=== PATIENT | female | born 1990 ===

== ENCOUNTER 2018-05-28 02:20 | Inpatient (IN) | payer MEDICAID ==
[2018-05-28] MEDS ORDERED: Sodium Chloride 0.9% 1,000 ML IV STA ×2 (02:43→04:09)
[2018-05-28] MEDS ORDERED: Iohexol 240 (50 ml) PO ONE (02:43)
[2018-05-28] MEDS ORDERED: Morphine 4 MG/ML VIAL IV ONE (02:52)
[2018-05-28] MEDS ORDERED: Iohexol 240 (50 ml) ONE ×2 (02:57→04:12)
[2018-05-28] MEDS ORDERED: Morphine 4 MG/ML VIAL ONE (02:58)
--- NOTE | 2018-05-28 03:09 | ED PDOC ---
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 Patient reports developing fever and chills, and also vomited upon arrival to ER. Last bowel movement was yesterday. Patient denies any diarrhea, constipation or other medical complaints. PMD: Ze Davis Past Medical History Reviewed: Historical Data, Nursing Documentation, Vital Signs Vital Signs: Last Vital Signs Temp 100.3 F H 05/28/18 02:37 Pulse 123 H 05/28/18 02:37 Resp 16 05/28/18 02:37 BP 135/64 05/28/18 02:37 Pulse Ox 100 05/28/18 05:26 - Medical History PMH: No Chronic Diseases - Surgical History Surgical History: No Surg Hx - Family History Family History: States: Unknown Family Hx - Home Medications Home Medications: Ambulatory Orders Medication Instructions Recorded Ibuprofen [Motrin Tab] 800 mg PO Q6H PRN #20 tab 08/25/15 Oxycodone HCl/Acetaminophen 1 tab PO Q6H PRN #15 tab 08/25/15 [Percocet 325 mg-5 mg] - Allergies Allergies/Adverse Reactions: Allergies Allergy/AdvReac Type Severity Reaction Status Date / Time No Known Allergies Allergy Verified 08/25/15 19:52 Review of Systems ROS Statement: Except As Marked, All Systems Reviewed And Found Negative Constitutional: Positive for: Fever, Chills Gastrointestinal: Positive for: Vomiting, Abdominal Pain. Negative for: Diarrhea, Constipation Physical Exam - Reviewed Nursing Documentation Reviewed: Yes Vital Signs Reviewed: Yes - Physical Exam Appears: Positive for: Non-toxic Head Exam: Positive for: ATRAUMATIC, NORMAL INSPECTION, NORMOCEPHALIC Skin: Positive for: Normal Color, Warm, Dry Eye Exam: Positive for: Normal appearance, EOMI, PERRL Neck: Positive for: Painless ROM, Supple Cardiovascular/Chest: Positive for: Regular Rate, Rhythm. Negative for: Murmur Respiratory: Positive for: Normal Breath Sounds. Negative for: Respiratory Distress Gastrointestinal/Abdominal: Positive for: Tenderness (RLQ), Guarding. Negative for: Rebound Back: Positive for: Normal Inspection. Negative for: L CVA Tenderness, R CVA Tenderness, Vertebral Tenderness Extremity: Positive for: Normal ROM (upper and lower extremities). Negative for : Deformity, Swelling Neurologic/Psych: Positive for: Alert, Oriented. Negative for: Motor/Sensory Deficits - Laboratory Results Result Diagrams: 05/28/18 03:10 05/28/18 03:10 - ECG O2 Sat by Pulse Oximetry: 100 (RA) Pulse Ox Interpretation: Normal Medical Decision Making Medical Decision Making: Time: 02:42 Initial impression: abdominal pain, appendicitis Initial Plan --Abd Pelvis PO & IV Contrast [CT] --Beta-HCG, Quantitative --CMP --CBC w/ differential --Omnipaque 240 50 ml PO --Morphine 4 mg IV --Sodium Chloride 1,000 ml IV 999 mls/hr --Zofran Inj 4 mg IV --Blood culture --Urine C&S --Urinalysis --Reevaluation 05:00 -Patient vomited contrast, will try giving contrast again. 05:20 -Patient has glucocytosis, elevated wbc. Hgb stable. No electrolyte abnormality. 06:20 -Patient will be admitted. ----- Scribe Attestation: Documented by Heath Sparks, acting as a scribe for Jose Francois MD. Provider Scribe Attestation: All medical record entries made by the Scribe were at my direction and personally dictated by me. I have reviewed the chart and agree that the record accurately reflects my personal performance of the history, physical exam, medical decision making, and the department course for this patient. I have also personally directed, reviewed, and agree with the discharge instructions and disposition. Disposition - Disposition Forms: [employer] (Uzbek)
[2018-05-28 03:22] LABS: BASO # 0.1 K/uL (0.0-0.2); BASO % 0.3 % (0.0-2.0); EOS # 0.2 K/uL (0.0-0.7); EOS % 0.9 % (0.0-4.0); HEMOGLOBIN 12.4 g/dL (12.0-16.0); LYMPH % 9.8 % (20.0-40.0); MEAN CELL VOLUME 89.6 fl (81.0-99.0); MEAN CORPUSCULAR HEMOGLOBIN 30.4 pg (27.0-31.0); MEAN PLATELET VOLUME 9.2 fl (7.2-11.7); MONO # 1.3 K/uL (0.0-0.8); MONO % 6.3 % (0.0-10.0); NEUT # 16.6 K/uL (1.8-7.0); NEUT % 82.7 % (50.0-75.0); PLATELET COUNT 260 K/uL (130-400); RBC 4.08 Mil/uL (3.80-5.20); RED CELL DISTRIBUTION WIDTH 13.7 % (11.5-14.5); WHITE BLOOD COUNT 20.1 K/uL (4.8-10.8)
[2018-05-28 03:32] LABS: ALB/GLOB RATIO 1.3 (1.0-2.1); ALBUMIN 4.5 g/dL (3.5-5.0); ALT/SGPT 20 U/L (9-52); AST/SGOT 22 U/L (14-36); BLOOD UREA NITROGEN 11 mg/dl (7-17); CALCIUM 9.4 mg/dL (8.4-10.2); GFR AFRICAN-AMERICAN > 60; GFR NON-AFRICAN AMERICAN > 60
[2018-05-28 04:04] LABS: BANDS 2 % (0-2); LYMPHOCYTE 6 % (20-50); MONOCYTE 7 % (0-10); NEUTROPHIL 81 % (42-75); PLATELET ESTIMATE NORMAL (NORMAL); REACTIVE LYMPHOCYTES 4 % (0-0); TOTAL CELLS COUNTED 100
[2018-05-28] MEDS ORDERED: Sodium Chloride 0.9% 100 ML ONE (05:03)
[2018-05-28] MEDS ORDERED: Iohexol 300 100 ML IJ ONE (05:03)
[2018-05-28 05:35] LABS: SQUAMOUS EPITHIAL 4 /hpf (0-5); URINE BACTERIA RARE (<OCC); URINE BILIRUBIN NEGATIVE (NEGATIVE); URINE BLOOD NEGATIVE (NEGATIVE); URINE CLARITY SLIGHTY-CLOUDY (Clear); URINE COLOR YELLOW (YELLOW); URINE GLUCOSE (UA) NEG (Normal); URINE LEUKOCYTE ESTERASE SMALL Leu/uL (Negative); URINE PROTEIN 30 mg/dL (NEGATIVE)
[2018-05-28] MEDS ORDERED: Sodium Chloride 0.9% 1,000 ML IV SCH (06:00)
[2018-05-28 06:22] LABS: INR 1.1 (0.9-1.2); PARTIAL THROMBOPLASTIN TIME 30.3 Seconds (25.6-37.1); PROTHROMBIN TIME 12.1 Seconds (9.8-13.1)
[2018-05-28] MEDS: Sodium Chloride 0.9% 1,000 ML IV SCH ×2 (06:27→13:46)
[2018-05-28] MEDS ORDERED: Piperacillin/Tazobact 3.375 gm Inj IVPB ONE (06:29)
[2018-05-28] MEDS: Piperacillin/Tazobact 3.375 GM in Sodium Chloride 0.9% 100 ML IVPB SCH ×6 (06:30→19:48)
--- NOTE | 2018-05-28 07:21 | CP.PCM.HP ---
History of Present Illness - History of Present Illness History of Present Illness: H &P. Obese 27 F w no sig PMH came to ED with RLQ pain started earlier today. Pain is sudden. Pain is localized. Pt had an episode of vomiting in ED. Non bilious, non bloody vomitus. Last time she ate was last night around 8PM. Pt also has fever of 100.3 in ED. Denies sick contact, recent travels, trauma, diarrhea, dysuria, hematuria,hematemesis, hematochezia, melena. Having regular BM. No PMH no PSH. Pain is worsen overtime. CT shows acute appnedicitis . Pt consented for OR, all questions answered. PMH none PSH none SS non smoker, non drinker, no drug abuse Present on Admission - Present on Admission Any Indicators Present on Admission: No Review of Systems - Review of Systems Review of Systems: See HPI - Constitutional Constitutional: Anorexia, Fever. absent: Chills, Weight Loss, Weakness Past Patient History - Infectious Disease Hx of Infectious Diseases: None - Past Social History Smoking Status: Never Smoked - CARDIAC Hx Cardiac Disorders: No - PULMONARY Hx Respiratory Disorders: No - NEUROLOGICAL Hx Neurological Disorder: No - HEENT Hx HEENT Problems: No - RENAL Hx Chronic Kidney Disease: No - ENDOCRINE/METABOLIC Hx Endocrine Disorders: No - HEMATOLOGICAL/ONCOLOGICAL Hx Blood Disorders: No - INTEGUMENTARY Hx Dermatological Problems: No - MUSCULOSKELETAL/RHEUMATOLOGICAL Hx Musculoskeletal Disorders: No - GENITOURINARY/GYNECOLOGICAL Hx Genitourinary Disorders: No - PSYCHIATRIC Hx Psychophysiologic Disorder: No - SURGICAL HISTORY Hx Surgeries: No - ANESTHESIA Hx Anesthesia: No Meds Allergies/Adverse Reactions: Allergies Allergy/AdvReac Type Severity Reaction Status Date / Time No Known Allergies Allergy Verified 08/25/15 19:52 Physical Exam - Constitutional Appears: Non-toxic, In Acute Distress - Head Exam Head Exam: ATRAUMATIC, NORMAL INSPECTION, NORMOCEPHALIC - Eye Exam Eye Exam: EOMI, Normal appearance, PERRL Pupil Exam: NORMAL ACCOMODATION, PERRL - ENT Exam ENT Exam: Mucous Membranes Moist, Normal Exam - Neck Exam Neck exam: Positive for: Normal Inspection - Respiratory Exam Respiratory Exam: NORMAL BREATHING PATTERN - Cardiovascular Exam Cardiovascular Exam: REGULAR RHYTHM - GI/Abdominal Exam GI & Abdominal Exam: Soft, Tenderness. absent: Distended, Firm, Guarding, Hernia, Rigid Additional comments: RLQ TTP. - Exam Exam: NORMAL INSPECTION - Extremities Exam Extremities exam: Positive for: normal inspection - Back Exam Back exam: NORMAL INSPECTION - Neurological Exam Neurological exam: Alert, CN II-XII Intact, Normal Gait, Oriented x3, Reflexes Normal - Psychiatric Exam Psychiatric exam: Normal Affect, Normal Mood - Skin Skin Exam: Dry, Intact, Normal Color, Warm Results - Vital Signs Recent Vital Signs: Last Vital Signs Temp 98.1 F 05/28/18 06:57 Pulse 88 05/28/18 06:57 Resp 18 05/28/18 06:57 BP 108/70 05/28/18 06:57 Pulse Ox 100 05/28/18 06:57 - Labs Result Diagrams: 05/28/18 03:10 05/28/18 03:10 Labs: Laboratory Results - last 24 hr 05/28/18 05/28/18 05/28/18 03:10 03:10 05:12 WBC 20.1 H D RBC 4.08 Hgb 12.4 Hct 36.5 MCV 89.6 MCH 30.4 MCHC 34.0 RDW 13.7 Plt Count 260 MPV 9.2 Neut % (Auto) 82.7 H Lymph % (Auto) 9.8 L [place] % (Auto) 6.3 Eos % (Auto) 0.9 Baso % (Auto) 0.3 Neut # (Auto) 16.6 H Lymph # (Auto) 2.0 [place] # (Auto) 1.3 H Eos # (Auto) 0.2 Baso # (Auto) 0.1 Neutrophils % (Manual) 81 H Band Neutrophils % 2 Lymphocytes % (Manual) 6 L Reactive Lymphs % 4 H Monocytes % (Manual) 7 Platelet Estimate Normal Macrocytosis (manual) Slight PT INR APTT Sodium 139 Potassium 3.8 Chloride 100 Carbon Dioxide 26 Anion Gap 17 BUN 11 Creatinine 0.6 L Est GFR ( Amer) > 60 Est GFR (Non-Af Amer) > 60 Random Glucose 97 Calcium 9.4 Total Bilirubin 1.1 AST 22 ALT 20 Alkaline Phosphatase 70 Total Protein 7.9 Albumin 4.5 Globulin 3.4 Albumin/Globulin Ratio 1.3 Beta HCG, Quant < 2.39 Urine Color Yellow Urine Clarity Slighty-cloudy Urine pH 6.0 Ur Specific [place] 1.028 Urine Protein 30 Urine Glucose (UA) Neg Urine Ketones 80 Urine Blood Negative Urine Nitrate Negative Urine Bilirubin Negative Urine Urobilinogen 2.0 H Ur Leukocyte Esterase Small Urine RBC (Auto) 4 H Urine Microscopic WBC 4 Ur Squamous Epith Cells 4 Urine Bacteria Rare 05/28/18 06:00 WBC RBC Hgb Hct MCV MCH MCHC RDW Plt Count MPV Neut % (Auto) Lymph % (Auto) [place] % (Auto) Eos % (Auto) Baso % (Auto) Neut # (Auto) Lymph # (Auto) [place] # (Auto) Eos # (Auto) Baso # (Auto) Neutrophils % (Manual) Band Neutrophils % Lymphocytes % (Manual) Reactive Lymphs % Monocytes % (Manual) Platelet Estimate Macrocytosis (manual) PT 12.1 INR 1.1 APTT 30.3 Sodium Potassium Chloride Carbon Dioxide Anion Gap BUN Creatinine Est GFR ( Amer) Est GFR (Non-Af Amer) Random Glucose Calcium Total Bilirubin AST ALT Alkaline Phosphatase Total Protein Albumin Globulin Albumin/Globulin Ratio Beta HCG, Quant Urine Color Urine Clarity Urine pH Ur Specific [place] Urine Protein Urine Glucose (UA) Urine Ketones Urine Blood Urine Nitrate Urine Bilirubin Urine Urobilinogen Ur Leukocyte Esterase Urine RBC (Auto) Urine Microscopic WBC Ur Squamous Epith Cells Urine Bacteria Assessment & Plan - Assessment and Plan (Free Text) Assessment: Acute appendicitis -OR today -NPO -IVF -ABX -DVT/GI ppx -pain/nausea control VANESSA glass
[2018-05-28] MEDS ORDERED: HYDROmorphone 0.5 mg/0.5 ml ISec IVP PRN ×2 (08:15→12:18)
[2018-05-28] MEDS ORDERED: Piperacillin/Tazobact 3.375 GM in Sodium Chloride 0.9% 100 ML IVPB SCH (10:00)
--- NOTE | 2018-05-28 10:10 | CT ---
PROCEDURE: CT Abdomen and Pelvis with contrast HISTORY: abd pain r sided COMPARISON: None. TECHNIQUE: Contrast dose: 98 mL Omnipaque 300 Radiation dose: Total exam DLP = 1030.18 mGy-cm. This CT exam was performed using one or more of the following dose reduction techniques: Automated exposure control, adjustment of the mA and/or kV according to patient size, and/or use of iterative reconstruction technique. FINDINGS: LOWER THORAX: Unremarkable. LIVER: Unremarkable. No gross lesion or ductal dilatation. GALLBLADDER AND BILE DUCTS: Unremarkable. PANCREAS: Unremarkable. No gross lesion or ductal dilatation. SPLEEN: Unremarkable. ADRENALS: Unremarkable. No mass. KIDNEYS AND URETERS: Unremarkable. No hydronephrosis. No solid mass. VASCULATURE: Unremarkable. No aortic aneurysm. BOWEL: Unremarkable. No obstruction. No gross mural thickening. APPENDIX: Dilated appendix measuring up to 1.3 centimeters. Mild periappendiceal stranding. No right lower quadrant fluid collection. PERITONEUM: Unremarkable. No free fluid. No free air. LYMPH NODES: Unremarkable. No enlarged lymph nodes. BLADDER: Limited evaluation due to underdistention. REPRODUCTIVE: Please note that evaluation of gynecologic organs is not optimal on CT imaging. BONES: No acute fracture. OTHER FINDINGS: None. IMPRESSION: Findings consistent with acute appendicitis. Please note that this report is in general agreement with the preliminary report provided by [facility].
[2018-05-28] MEDS ORDERED: Propofol 10 mg/ml Inj (20 ML) ONE (10:45)
[2018-05-28] MEDS ORDERED: Midazolam 2 MG/2 ML VIAL ONE (10:45)
[2018-05-28] MEDS ORDERED: Rocuronium 10 mg/ml (5 ml) ONE (10:45)
[2018-05-28] MEDS ORDERED: Lidocaine 4% (Laryng-O-Jet) Kit MM ONE (10:45)
[2018-05-28] MEDS ORDERED: Lactated Ringer's 1,000 ML IV ONE (10:55)
[2018-05-28] MEDS ORDERED: Bupivacaine HCl 0.25% PF (30 ml) Inj ONE (11:03)
--- NOTE | 2018-05-28 12:17 | PCM.SURG1 ---
Surgeon's Initial Post Op Note - Surgeon's Notes Surgeon: Dr. Dev Reyes Chief Orthoptist: Nurys Young, PGY-2 Type of Anesthesia: General Endo Anesthesia Administered By: Dr Rodriguez Pre-Operative Diagnosis: Acute appendicitis Operative Findings: See op report Post-Operative Diagnosis: Acute appendicitis Operation Performed: Laparoscopic appendectomy Specimen/Specimens Removed: Appendix Estimated Blood Loss: EBL {In ML}: 5 Blood Products Given: N/A Drains Used: No Drains Post-Op Condition: Good Date of Surgery/Procedure: 05/28/18 Time of Surgery/Procedure: 12:17
[2018-05-28] MEDS ORDERED: Dexamethasone 4 mg/1 ml IVP PRN (12:18)
[2018-05-28] MEDS: Lactated Ringer's 1,000 ML IV SCH ×2 (13:07→22:00)
[2018-05-28] MEDS ORDERED: Benzocaine/Menthol (Cepacol) Lozenge PO PRN (18:16)
[2018-05-28] MEDS: Oxycodone/Acetaminophen 5/325 mg Tab PO PRN (19:48)
[2018-05-29] MEDS: Piperacillin/Tazobact 3.375 GM in Sodium Chloride 0.9% 100 ML IVPB SCH ×2 (01:06→08:19)
--- NOTE | 2018-05-29 03:16 | OP ---
PROCEDURE DATE: 05/28/2018 SURGEON: Dev Reyes MD TRADING ANALYST: Nurys Young, PGY-2 ANESTHESIOLOGIST: Dr. Rodriguez. ANESTHESIA: General endotracheal. PREOPERATIVE DIAGNOSIS: Acute appendicitis. POSTOPERATIVE DIAGNOSIS: Acute appendicitis. OPERATION PERFORMED: Laparoscopic appendectomy. FINDINGS: Acute appendicitis. SPECIMEN: Appendix. BLOOD LOSS: 5 mL. DRAINS: None. COMPLICATIONS: None. DESCRIPTION OF PROCEDURE: Preoperatively, the patient was evaluated with CT scan, with findings of acute appendicitis, additionally pt had a leukocytosis of 20.1 with a temperature of 100.3. The patient states that the pain started on day of evaluation. A time-out was achieved. The patient was identified by name, name of the procedure, laterality, my vu, the consent form, and her wrist band. The abdomen was prepped with chlorhexidine. After waiting for 3 minutes, the abdomen was draped. A suprumbilical incision was made after injection with Marcaine. The abdomen was then entered with a Veress needle in the umbilicus inferior to the supraumbilical incision. The abdomen was the insufflated with carbon dioxide to a pressure of approximately 15mmHg. A Visiport was then placed right into the supraumbilical incision without issue. Circumferential observation was performed while inserting the Visiport, which was unremarkable. After insertion of the Visiport, the camera was used to identify the tip of the appendix in the right lower quadrant. Subsequently, a suprapubic 5 mm port and a left lower quadrant 5 mm port were placed. Using a 10 mm scope, the tip of the appendix was identified and brought up. It was very inflamed, but it was not perforated. There was a small amount of non-feculent, nonpurulent fluid in the pelvis. The appendix was identified with mesentery eventually seen. The mesentery was serially taken down until the base of the appendix was identified at the junction of the cecum, using a [place] and Harmonic to dissect. Under direct visualization, a Harmonic scalpel was used to ligate the appendiceal artery. After ligation of the appendiceal artery, the appendix was pulled up, a 5 mm scope was inserted into the left lower quadrant port and an Endo JAVIER was placed at the base of the appendix , right above the cecum. After making sure the stapler was beyond the tissue and no other structures were caught in the stapler, the stapler was fired. The entire appendix was removed and placed in the Endo catch bag. After dilation of the umbilical incision and the incision was extended with scissors, the appendix was removed. The abdominal cavity was inspected. A small amount of fluid in the pelvis was aspirated and then irrigated and removed. There was very minimal bleeding identified. No appendiceal stump was identified. The CO2 was removed after evaluating the abdomen, which was benign. The umbilicus was closed with a UR6 suture. The wound was injected with Marcaine,and subcuticular sutures were placed in all 3 incisions. Dermabond was applied to all incisions At the end of the procedure, the sponge, instrument, and needle counts were declared to be correct. The patient was then taken to recovery room in good condition. Nurys Young DO Dev Reyes MD MTDHuma
[2018-05-29] MEDS: Oxycodone/Acetaminophen 5/325 mg Tab PO PRN (07:01)
[2018-05-29] MEDS ORDERED: Oxycodone/Acetaminophen 5/325 mg Tab PO PRN (07:27)
--- NOTE | 2018-05-29 07:31 | CP.PCM.DIS ---
Provider - Provider Date of Admission: 05/28/18 06:21 Attending physician: Dev Reyes MD Time Spent in preparation of Discharge (in minutes): 45 Hospital Course - Lab Results Lab Results: Micro Results 05/28/18 03:40 Blood-Venous Blood Culture - Preliminary NO GROWTH AFTER 24 HOURS 05/28/18 03:10 Blood-Venous Blood Culture - Preliminary NO GROWTH AFTER 24 HOURS Most Recent Lab Values WBC 20.1 K/uL (4.8-10.8) H D 05/28/18 03:10 RBC 4.08 Mil/uL (3.80-5.20) 05/28/18 03:10 Hgb 12.4 g/dL (12.0-16.0) 05/28/18 03:10 Hct 36.5 % (34.0-47.0) 05/28/18 03:10 MCV 89.6 fl (81.0-99.0) 05/28/18 03:10 MCH 30.4 pg (27.0-31.0) 05/28/18 03:10 MCHC 34.0 g/dL (33.0-37.0) 05/28/18 03:10 RDW 13.7 % (11.5-14.5) 05/28/18 03:10 Plt Count 260 K/uL (130-400) 05/28/18 03:10 MPV 9.2 fl (7.2-11.7) 05/28/18 03:10 Neut % (Auto) 82.7 % (50.0-75.0) H 05/28/18 03:10 Lymph % (Auto) 9.8 % (20.0-40.0) L 05/28/18 03:10 [place] % (Auto) 6.3 % (0.0-10.0) 05/28/18 03:10 Eos % (Auto) 0.9 % (0.0-4.0) 05/28/18 03:10 Baso % (Auto) 0.3 % (0.0-2.0) 05/28/18 03:10 Neut # (Auto) 16.6 K/uL (1.8-7.0) H 05/28/18 03:10 Lymph # (Auto) 2.0 K/uL (1.0-4.3) 05/28/18 03:10 [place] # (Auto) 1.3 K/uL (0.0-0.8) H 05/28/18 03:10 Eos # (Auto) 0.2 K/uL (0.0-0.7) 05/28/18 03:10 Baso # (Auto) 0.1 K/uL (0.0-0.2) 05/28/18 03:10 Neutrophils % (Manual) 81 % (42-75) H 05/28/18 03:10 Band Neutrophils % 2 % (0-2) 05/28/18 03:10 Lymphocytes % (Manual) 6 % (20-50) L 05/28/18 03:10 Reactive Lymphs % 4 % (0-0) H 05/28/18 03:10 Monocytes % (Manual) 7 % (0-10) 05/28/18 03:10 Platelet Estimate Normal (NORMAL) 05/28/18 03:10 Macrocytosis (manual) Slight 05/28/18 03:10 PT 12.1 Seconds (9.8-13.1) 05/28/18 06:00 INR 1.1 (0.9-1.2) 05/28/18 06:00 APTT 30.3 Seconds (25.6-37.1) 05/28/18 06:00 Sodium 139 mmol/l (132-148) 05/28/18 03:10 Potassium 3.8 MMOL/L (3.6-5.0) 05/28/18 03:10 Chloride 100 mmol/L (98-107) 05/28/18 03:10 Carbon Dioxide 26 mmol/L (22-30) 05/28/18 03:10 Anion Gap 17 (10-20) 05/28/18 03:10 BUN 11 mg/dl (7-17) 05/28/18 03:10 Creatinine 0.6 mg/dl (0.7-1.2) L 05/28/18 03:10 Est GFR ( Amer) > 60 05/28/18 03:10 Est GFR (Non-Af Amer) > 60 05/28/18 03:10 Random Glucose 97 mg/dL (65-105) 05/28/18 03:10 Calcium 9.4 mg/dL (8.4-10.2) 05/28/18 03:10 Total Bilirubin 1.1 mg/dl (0.2-1.3) 05/28/18 03:10 AST 22 U/L (14-36) 05/28/18 03:10 ALT 20 U/L (9-52) 05/28/18 03:10 Alkaline Phosphatase 70 U/L (38-126) 05/28/18 03:10 Total Protein 7.9 G/DL (6.3-8.2) 05/28/18 03:10 Albumin 4.5 g/dL (3.5-5.0) 05/28/18 03:10 Globulin 3.4 gm/dL (2.2-3.9) 05/28/18 03:10 Albumin/Globulin Ratio 1.3 (1.0-2.1) 05/28/18 03:10 Beta HCG, Quant < 2.39 mIU/mL 05/28/18 03:10 Urine Color Yellow (YELLOW) 05/28/18 05:12 Urine Clarity Slighty-cloudy (Clear) 05/28/18 05:12 Urine pH 6.0 (5.0-8.0) 05/28/18 05:12 Ur Specific [place] 1.028 (1.003-1.030) 05/28/18 05:12 Urine Protein 30 mg/dL (NEGATIVE) 05/28/18 05:12 Urine Glucose (UA) Neg mg/dL (Normal) 05/28/18 05:12 Urine Ketones 80 mg/dL (NEGATIVE) 05/28/18 05:12 Urine Blood Negative (NEGATIVE) 05/28/18 05:12 Urine Nitrate Negative (NEGATIVE) 05/28/18 05:12 Urine Bilirubin Negative (NEGATIVE) 05/28/18 05:12 Urine Urobilinogen 2.0 mg/dL (0.2-1.0) H 05/28/18 05:12 Ur Leukocyte Esterase Small [place]/uL (Negative) 05/28/18 05:12 Urine RBC (Auto) 4 /hpf (0-3) H 05/28/18 05:12 Urine Microscopic WBC 4 /hpf (0-5) 05/28/18 05:12 Ur Squamous Epith Cells 4 /hpf (0-5) 05/28/18 05:12 Urine Bacteria Rare (<OCC) 05/28/18 05:12 - Hospital Course Hospital Course: obese 27 F w no sig PMH came with RLQ abd pain for 1 day. Pt was found to have appendicitis and taken to OR the next day. Tolerated it well. Pain controlled. Tolerated diet. Denies nausea, CP, SOB. Ambuated and voided. PT was instructed to f/u at Dr. Reyes's office in 1 week. Discharge Exam - Head Exam Head Exam: ATRAUMATIC, NORMAL INSPECTION, NORMOCEPHALIC - Eye Exam Eye Exam: EOMI, Normal appearance, PERRL Pupil Exam: NORMAL ACCOMODATION, PERRL - ENT Exam ENT Exam: Normal Exam - Neck Exam Neck exam: Full Rom - Respiratory Exam Respiratory Exam: NORMAL BREATHING PATTERN, UNREMARKABLE - Cardiovascular Exam Cardiovascular Exam: REGULAR RHYTHM, +S1, +S2 - GI/Abdominal Exam GI & Abdominal Exam: Soft, Tenderness. absent: Distended, Firm, Guarding, Hernia, Rigid Additional comments: Incision C/D/I . TTP - Exam Exam: NORMAL INSPECTION - Extremities Exam Extremities exam: full ROM - Back Exam Back exam: FULL ROM - Neurological Exam Neurological exam: Alert, CN II-XII Intact, Normal Gait, Oriented x3, Reflexes Normal - Psychiatric Exam Psychiatric exam: Normal Affect, Normal Mood - Skin Skin Exam: Dry, Intact, Normal Color, Warm Discharge Plan - Follow Up Plan Condition: STABLE Disposition: HOME/ ROUTINE Instructions: Appendicitis in Adults, Appendectomy, Laparoscopic Surgery (DC) Additional Instructions: f/u at Dr. Reyes's office in 1 week. Ok to take shower. Leave glues on. Ok to return to work next week. NO heavy lifting for 1 month Take pain med as needed. Referrals: Dev Reyes MD [Staff Provider] -
[2018-05-29 08:05] VITALS: BP 111/75; PULSE 82; RESP 18; TEMP 98.4; O2SAT 99
[2018-05-29 08:38] LABS: BASO # 0.1 K/uL (0.0-0.2); BASO % 0.5 % (0.0-2.0); EOS # 0.1 K/uL (0.0-0.7); EOS % 1.5 % (0.0-4.0); LYMPH # 1.6 K/uL (1.0-4.3); LYMPH % 15.8 % (20.0-40.0); MEAN CELL VOLUME 91.8 fl (81.0-99.0); MEAN CORPUSCULAR HEMOGLOBIN 30.4 pg (27.0-31.0); MEAN CORPUSCULAR HGB CONC 33.2 g/dL (33.0-37.0); MONO # 0.9 K/uL (0.0-0.8); MONO % 8.6 % (0.0-10.0); NEUT # 7.5 K/uL (1.8-7.0); NEUT % 73.6 % (50.0-75.0); RBC 3.29 Mil/uL (3.80-5.20); RED CELL DISTRIBUTION WIDTH 13.7 % (11.5-14.5); WHITE BLOOD COUNT 10.2 K/uL (4.8-10.8)
== END 2018-05-29 10:26 | disposition home or self-care (01) | DRG 883 ==
LOC: H.ER 02:20 → H.ERHOLD 06:21 → H.MEDSURG1 07:03
PROVIDERS: ADMIT Surgery; ATTEND Surgery
PROC: 0DTJ4ZZ Resection of Appendix, Percutaneous Endoscopic Approach (ICD-10-PCS; principal; 2018-05-28 12:30)
DX: K35.80 Unspecified acute appendicitis (principal); D72.828 Other elevated white blood cell count

== ENCOUNTER 2018-05-31 18:28 | Emergency (ER) | payer MEDICAID ==
[2018-05-31 19:15] VITALS: BP 117/70; PULSE 82; RESP 18; TEMP 98.8; O2SAT 97
--- NOTE | 2018-05-31 19:43 | ED PDOC ---
HPI: Abdomen Time Seen by Provider: 05/31/18 19:42 Chief Complaint (Nursing): GI Problem Chief Complaint (Provider): CONSTIPATION History Per: Patient (27 Y/O FEMALE HERE WITH CONSTIPATION/RECTAL PAIN NOTED TODAY S/P APPENDECTOMY 05/28/2018. TOOK ONE DOSE TRAMADOL YESTERDAY. TOOK ONE DOSE COLACE TODAY WITHOUT RELIEF. DENIES ANY FEVERS/CHILLS.) Past Medical History Reviewed: Historical Data, Nursing Documentation, Vital Signs Vital Signs: Last Vital Signs Temp 98.8 F 05/31/18 19:12 Pulse 82 05/31/18 19:12 Resp 18 05/31/18 19:12 BP 117/70 05/31/18 19:12 Pulse Ox 97 05/31/18 19:43 - Medical History PMH: Denies: Chronic Kidney Disease - Family History Family History: States: Unknown Family Hx - Home Medications Home Medications: Ambulatory Orders Medication Instructions Recorded Ibuprofen [Motrin Tab] 600 mg PO Q6 5 Days tab 05/29/18 Ibuprofen [Motrin] 600 mg PO Q8 PRN #21 tab 05/31/18 Polyethylene Glycol 3350 [Miralax] 17 gm PO DAILY #68 ml 05/31/18 - Allergies Allergies/Adverse Reactions: Allergies Allergy/AdvReac Type Severity Reaction Status Date / Time No Known Allergies Allergy Verified 08/25/15 19:52 Review of Systems ROS Statement: Except As Marked, All Systems Reviewed And Found Negative Physical Exam - Reviewed Nursing Documentation Reviewed: Yes Vital Signs Reviewed: Yes - Physical Exam Appears: Positive for: Well, Non-toxic, No Acute Distress Head Exam: Positive for: ATRAUMATIC, NORMAL INSPECTION, NORMOCEPHALIC Skin: Positive for: Normal Color, Warm, DRY Eye Exam: Positive for: EOMI, Normal appearance, PERRL ENT: Positive for: Normal ENT Inspection Neck: Positive for: Normal, Painless ROM Cardiovascular/Chest: Positive for: Regular Rate, Rhythm Respiratory: Positive for: CNT, Normal Breath Sounds Gastrointestinal/Abdominal: Positive for: Normal Exam, Soft Back: Positive for: Normal Inspection Rectal: Positive for: Other (no stool in rectum) Extremity: Positive for: Normal ROM Neurologic/Psych: Positive for: Alert, Oriented - Laboratory Results Result Diagrams: 05/31/18 20:33 05/31/18 20:33 - ECG O2 Sat by Pulse Oximetry: 97 - Progress ED Course And Treament: obstructive series: NO signs of obstruction; moderate stool fleet enema attempted with bowel movement noted after. seen by surgical lead. Recommends d/c home with motrin/colace/miralax and f /u with dr. glass Disposition - Clinical Impression Clinical Impression: Constipation - Patient ED Disposition Is Patient to be Admitted: No - Disposition Referrals: Dev Glass MD [Staff Provider] - Disposition: Routine/Home Disposition Time: 21:43 Condition: STABLE Prescriptions: Ibuprofen [Motrin] 600 mg PO Q8 PRN #21 tab PRN Reason: Pain, Moderate (4-7) Polyethylene Glycol 3350 [Miralax] 17 gm PO DAILY #68 ml Instructions: Constipation, Adult (DC)
[2018-05-31 20:38] LABS: BASO # 0.1 K/uL (0.0-0.2); BASO % 0.4 % (0.0-2.0); EOS # 0.2 K/uL (0.0-0.7); EOS % 1.6 % (0.0-4.0); HEMOGLOBIN 12.7 g/dL (12.0-16.0); LYMPH % 15.3 % (20.0-40.0); MEAN PLATELET VOLUME 8.4 fl (7.2-11.7); MONO # 0.8 K/uL (0.0-0.8); MONO % 6.2 % (0.0-10.0); NEUT # 9.8 K/uL (1.8-7.0); NEUT % 76.5 % (50.0-75.0); RBC 4.21 Mil/uL (3.80-5.20); RED CELL DISTRIBUTION WIDTH 13.5 % (11.5-14.5); WHITE BLOOD COUNT 12.8 K/uL (4.8-10.8)
[2018-05-31 20:48] LABS: ALB/GLOB RATIO 1.3 (1.0-2.1); ALBUMIN 4.7 g/dL (3.5-5.0); ALT/SGPT 25 U/L (9-52); AST/SGOT 21 U/L (14-36); BLOOD UREA NITROGEN 12 mg/dl (7-17); CALCIUM 10.3 mg/dL (8.4-10.2); GFR AFRICAN-AMERICAN > 60; GFR NON-AFRICAN AMERICAN > 60; LIPASE 102 U/L (23-300)
[2018-05-31 21:00] LABS: SQUAMOUS EPITHIAL 1 /hpf (0-5); URINE BILIRUBIN NEGATIVE (NEGATIVE); URINE BLOOD NEGATIVE (NEGATIVE); URINE CLARITY CLEAR (Clear); URINE COLOR STRAW (YELLOW); URINE GLUCOSE (UA) NEG (Normal); URINE LEUKOCYTE ESTERASE NEG Leu/uL (Negative); URINE PROTEIN NEGATIVE (NEGATIVE); URINE UROBILINOGEN 0.2-1.0 mg/dL (0.2-1.0)
--- NOTE | 2018-06-01 10:06 | RAD ---
PROCEDURE: Radiographs of the chest and abdomen (obstructive series) HISTORY: CONSTIPATION COMPARISON: No prior. TECHNIQUE: AP radiograph of the chest, with upright and supine radiographs of the abdomen. FINDINGS: CHEST: Lungs: Clear. Cardiovascular: Normal size heart. No pulmonary vascular congestion. Pleura: No pleural fluid. No pneumothorax. Other findings: None. ABDOMEN AND PELVIS: Bowel: Unremarkable bowel gas pattern. Prominent amount of retained colonic stool. No evidence of mechanical obstruction. Retained oral contrast from recent CT scan with contrast seen in the rectum. Free air: None. Bones: Unremarkable. Other findings: None. IMPRESSION: Unremarkable radiographs of chest and abdomen. No evidence of mechanical bowel obstruction. Prominent amount of retained colonic stool.
== END 2018-05-31 22:31 | disposition home or self-care (01) ==
LOC: H.ER 18:28
DX: K59.00 Constipation, unspecified (principal); Z98.890 Other specified postprocedural states